=== PATIENT | male | born 1970 | race Caucasian/White ===

== ENCOUNTER 2017-11-17 12:01 | Emergency (ER) | payer OTHER ==
[~2017-11-17] VITALS: Ht 177.8 cm; Wt 77.1 kg
[~2017-11-17 12:01] MED LIST: ALBU90OI61 INH; ASPI325 PO; Ativan1 MG SL; CEPH500 PO; CITA20 PO; CYCL10 PO; DULERA 100 MCG/13 GM; GABA300 PO; LISI20 PO; Miralax17 GM PO; Multiple Vitam1 EAC1 PO; Naprosyn500 MG PO; PRAV20 PO; PRED20 PO; PROM25 PO; Percocet 5-3251 EACH PO; TRAZ100; TRAZ100 PO; Veetids 500500 MG PO; [UNRECOGNIZED DRUG - OTHER]
[2017-11-17] MEDS ORDERED: TRAM50 PO (12:20)
[2017-11-17] MEDS ORDERED: CYCL10 PO (12:21)
[2017-11-17] MEDS ORDERED: IBUP800 PO (12:21)
[2017-11-17] MEDS ORDERED: Prednisone20 MG PO (12:43)
[2017-11-17] MEDS ORDERED: Voltaren100 GM TOP (12:43)
[2017-11-17] MEDS ORDERED: META800 PO (12:43)
== END 2017-11-17 12:51 | disposition home or self-care (01) ==
LOC: ER 12:01
DX: M54.41 Lumbago with sciatica, right side (principal); I10 Essential (primary) hypertension; E78.00 Pure hypercholesterolemia, unspecified; I48.91 Unspecified atrial fibrillation; F17.210 Nicotine dependence, cigarettes, uncomplicated; Z88.5 Allergy status to narcotic agent; Z79.899 Other long term (current) drug therapy
CPT/HCPCS: 96372; 99283; J1885

== ENCOUNTER 2018-03-27 15:17 | Emergency (ER) | payer OTHER ==
[~2018-03-27] VITALS: Ht 177.8 cm; Wt 79.4 kg
[~2018-03-27 15:17] MED LIST changes: +IBUP800 PO; +META800 PO; +Prednisone20 MG PO; +TRAM50 PO; +Ultram50 MG PO; +Voltaren100 GM TOP
[2018-03-27 15:53] LABS: Source, Urine Clean Catch
[2018-03-27 16:16] LABS: Bilirubin, Urine Neg (Neg); Blood, Urine Neg (Neg); Glucose Qualitative, Urine Neg (Neg); Ketones, Urine Neg (Neg); Leukocyte Esterase, Urine Neg (Neg); Nitrite, Urine Neg (Neg); Protein, Urine Neg (Neg); Specific Gravity, Urine 1.015 (1.003-1.022); Urobilinogen, Urine NORM (Normal)
[2018-03-27 16:37] LABS: Appearance, Urine Clear (Clear); Color, Urine Yellow (P-Yellow)
[2018-03-27] MEDS ORDERED: ACET500 (17:33)
[2018-03-27] MEDS ORDERED: TIZANIDINE HCL4 MG PO (17:33)
[2018-03-27] MEDS ORDERED: GABA300 PO (17:34)
[2018-03-27] MEDS ORDERED: LISI20 PO (17:34)
[2018-03-27] MEDS ORDERED: INDO50S PR (17:34)
[2018-03-27] MEDS ORDERED: PRAV20 PO (17:34)
[2018-03-27] MEDS ORDERED: HYDR1TAB94 PO (17:35)
== END 2018-03-27 18:53 | disposition home or self-care (01) ==
LOC: ER 15:17
PROVIDERS: Physician Assistant
DX: M51.16 Intervertebral disc disorders with radiculopathy, lumbar region (principal); I10 Essential (primary) hypertension; E78.00 Pure hypercholesterolemia, unspecified; I48.91 Unspecified atrial fibrillation; F17.210 Nicotine dependence, cigarettes, uncomplicated
CPT/HCPCS: 72148; 81003; 99284-25